=== PATIENT | female | born 1980 | race Hispanic/Latino ===

== ENCOUNTER 2023-11-16 19:04 | Observation (INO) | payer SELFPAY ==
[2023-11-16 19:43] LABS: #Basophils 0.07 10x3/uL (0.0-0.2); #Eosinophils 0.18 10x3/uL (0.0-0.5); #Monocytes 0.57 10x3/uL (0.0-1.1); #Neutrophils 5.54 10x3/uL (1.5-8.4); %Basophils 0.8 % (0.0-2.0); %Lymphocytes 29.1 % (18.0-47.0); %Monocytes 6.3 % (0.0-10.0); %Neutrophils 61.4 % (40.0-75.0); Hematocrit 22.8 % (34.9-44.5); Hemoglobin 5.8 g/dL (12.0-15.5); Mean Corpuscular HGB CONC 25.4 g/dL (32.0-36.0); Mean Corpuscular Hemoglobin 14.9 pg (27.0-33.0); Mean Corpuscular Volume 58.8 fL (81.6-98.3); Mean Platelet Volume 9.8 fL (7.4-10.4); Platelet Count 664 10x3/uL (150-450); RBC Distribution Width 21.9 % (11.5-14.5); Red Blood Cell (RBC) Count 3.88 10x6/uL (3.90-5.03)
[2023-11-16 19:53] LABS: ALT (SGPT) 12 U/L (8-55); AST (SGOT) 17 U/L (5-34); Albumin 3.6 g/dL (3.5-5.0); Alkaline Phosphatase 65 U/L (40-110); Anion Gap 14 mmol/L (10-20); BUN (Urea Nitrogen) 8 mg/dL (7.0-18.7); Bilirubin, Total 0.4 mg/dL (0.2-1.2); Calc. Creatinine Clearance 0 mL/min (70-130); Calcium 8.8 mg/dL (7.8-10.44); Carbon Dioxide 20 mmol/L (22-29); Chloride 108 mmol/L (98-107); Estimated GFR 104; Globulin 3.5 g/dL (2.4-3.5); Glucose 92 mg/dL (70-105); Lipase 26 U/L (8-78); Magnesium 1.9 mg/dL (1.6-2.6); Potassium 3.8 mmol/L (3.5-5.1); Protein, Total 7.1 g/dL (6.0-8.3); Sodium 138 mmol/L (136-145)
[2023-11-16 19:59] LABS: Troponin I 0.016 ng/mL (< 0.028)
[2023-11-16 20:04] LABS: PTT 23.6 sec (22.0-33.0); Prothrombin Time 10.6 sec (9.5-12.1)
[2023-11-16 20:36] LABS: Anisocytosis MODERATE=16-30 cells (100X) (0-5/hpf); Poikilocytosis SLIGHT = 6-15 cells (100X) (0-5/hpf)
[2023-11-16 20:37] LABS: Hypochromia MARKED = >30 cells (100X) (0-5/hpf); Microcytosis MODERATE=15-30 cells (100X) (0-5/hpf)
[2023-11-16 20:40] LABS: Ovalocytes SLIGHT = 2-5 cells (100X) (0-1/hpf); Polychromasia SLIGHT = 2-3 cells (100X) (0-2/hpf)
[2023-11-16 20:41] LABS: Elliptocytes SLIGHT = 2-5 cells (100X) (0-1/hpf)
[2023-11-16 20:42] LABS: Platelet Adequacy Comment Appears Increased; Reflex for Review?? YES
[2023-11-16 21:26] LABS: Troponin I 0.022 ng/mL (< 0.028)
[2023-11-16] MEDS: Ferrous Sulfate 325 MG TAB PO SCH (23:05)
[2023-11-17 06:32] VITALS: BMI 32.9
[2023-11-17 08:25] LABS: #Basophils 0.06 10x3/uL (0.0-0.2); #Eosinophils 0.17 10x3/uL (0.0-0.5); #Monocytes 0.52 10x3/uL (0.0-1.1); #Neutrophils 6.06 10x3/uL (1.5-8.4); %Basophils 0.7 % (0.0-2.0); %Monocytes 6.2 % (0.0-10.0); %Neutrophils 71.7 % (40.0-75.0); Hematocrit 27.8 % (34.9-44.5); Hemoglobin 7.5 g/dL (12.0-15.5); Mean Corpuscular Hemoglobin 17.2 pg (27.0-33.0); Mean Corpuscular Volume 63.9 fL (81.6-98.3); Mean Platelet Volume 9.6 fL (7.4-10.4); Platelet Count 550 10x3/uL (150-450); RBC Distribution Width 24.7 % (11.5-14.5); Red Blood Cell (RBC) Count 4.35 10x6/uL (3.90-5.03); White Blood Cell (WBC) Count 8.4 10x3/uL (3.5-10.5)
[2023-11-17 12:46] VITALS: BP 115/77; TEMP 98.6
[2023-11-17 14:02] LABS: Critical Call w/ Read Back NUR.AEB @1940 W/READ
[2023-11-18] MEDS ORDERED: Ferrous Sulfate 325 MG TAB PO SCH (17:00)
== END 2023-11-17 13:08 | disposition home or self-care (01) ==
LOC: CSHERS 19:04 → CSHERHOLD 22:06 → CSHTELE 11-17 06:26
PROVIDERS: ADMIT Family Medicine; ATTEND Family Medicine
DX: R07.89 Other chest pain (principal); R53.1 Weakness; D50.0 Iron deficiency anemia secondary to blood loss (chronic); N92.0 Excessive and frequent menstruation with regular cycle
CPT/HCPCS: 36415; 36430; 71045; 80053; 83690; 83735; 83880; 84484; 85025; 85060; 85610; 85730; 86850; 86900; 86901; 93005; G0378; P9016; P9040